=== PATIENT | female | born 1950 | race Caucasian/White ===

== ENCOUNTER → 2023-07-05 09:07 | Day surgery (SDC) | payer OTHER, SELFPAY ==
--- NOTE | 2023-06-29 12:17 | HPS.HSE ---
Family Physician
-
Family Physician: NOT KNOW UNKNOWN - PT DOES
Chief Complaint
-
Persistent atrial fibrillation.
History of Present Illness
The patient is a 72-year-old female presenting today for persistent atrial fibrillation. The patient reports significant palpitations, intermittent dyspnea on exertion, and mild fatigue secondary to this diagnosis. She previously underwent
a cardioversion in 03/2023 for her arrhythmia. She is on current pharmacological therapy with Toprol-XL. She takes Eliquis for a CHADS-VASc score of 3. She notes that her current symptoms associated with her arrhythmia are greatly interfering with
her activities of daily living and are overall impacting her quality of life. It is recommended that she proceed with pulmonary vein isolation for further arrhythmia management at this time. Prior to undergoing pulmonary vein isolation, she will
proceed with a transesophageal echocardiogram to officially rule out a left atrial appendage thrombus. She denies any current complaints today such as chest pain, shortness of breath at rest, nausea, vomiting, diarrhea, lightheadedness, dizziness,
cough, sore throat, or fever.
Medical History
Past Medical History
Past Medical History: Reports Other
Additional Past Medical History:
1. Persistent atrial fibrillation, status post cardioversion 03/2023;�
� � pharmacological therapy with Toprol-XL, oral anticoagulation
� � with Eliquis.
2. Hypertension.
3. Mitral regurgitation.
4. Tricuspid regurgitation.
5. Abnormal chest CT; follow-up advised.
6. GERD.
7. Hemorrhoids.
8. Balance difficulties.
9. Squamous cell carcinoma, status post multiple excisions.
10. Insomnia.
11. Mild hyponatremia.
Past Surgical History: Reports Other
Additional Past Surgical History:
1. Cardioversion.
2. [place] teeth extraction.
3. Multiple squamous cell carcinoma excisions.
4. Colonoscopy x2.
Social History
Tobacco: Non-smoker
Alcohol: Other (She reports occasional wine drinking. )
Personal: Partner
Living: Other (The patient lives in a one-story home with her partner.)
Family History
Family History: Not pertinent
Allergies / Home Medications
Allergy/Medication List:
MEDICATIONS:�
1. Acetaminophen 1000 mg p.o. every 6 hours as needed.
2. Eliquis 5 mg p.o. twice a day.
3. Lisinopril 20 mg p.o. daily.
4. Melatonin 5 mg p.o. at bedtime as needed.
5. Metoprolol Succinate 25 mg p.o. daily.
6. Pantoprazole 20 mg p.o. daily.
7. Simethicone 125 mg p.o. daily as needed.
�
ALLERGIES:� Penicillin. Sulfa.
Review of Systems
-
A 12 point ROS was completed and negative except as noted: Yes
Physical Exam
Vital Signs
Blood pressure 156/96, heart rate ranging from 84 to 116 beats per minute, respirations 18, pulse ox 98 percent on room air.
Height 5 feet 7 inches, weight 53.4 kg, BMI 18.4.
Physical Exam
General: Well Developed, Well Nourished and No Apparent Distress
HEENT: NormoCephalic, Moist mucous membranes, Atraumatic and PERRLA
Respiratory: Clear
Cardiac: Irregular Rhythm and Murmur (2/6 systolic )
GI: Soft, Non Tender and Non Distended
Musculoskeletal: Normal Gait & Station
Skin: Warm and Dry
Neuro: AO x 3 and Nonfocal/grossly intact
Laboratory Results
-
DIAGNOSTIC STUDIES as of 06/27/2023: White blood cell count 6.1, hemoglobin 15.2, platelet count 229,000. PT 18.7, INR 1.58. Sodium 134, potassium 4.4, BUN 9, creatinine 0.5, glucose 85, calcium 9.3, magnesium 2.1, AST 32, ALT 25, albumin 4.3, Type
and screen O- positive.
�
EKG 06/27/2023: Atrial flutter with variable AV block. Rightward axis.
�
Chest CT 06/27/2023: Normal, conventional pulmonary venous anatomy on the left. On the right there is an accessory right middle lobe pulmonary vein with immediate branching into lateral and medial segments. No definite left atrial filling
defect/thrombus identified; however, this is not fully opacify. There is asymmetric right apical pleural thickening and adjacent stranding, nonspecific groundglass opacity. This could be related to previous infection or inflammation. Follow-up exam
with repeat chest CT in 3-6 months to document stability and exclude an occult neoplasm.
Impression/Plan
-
IMPRESSION/PLAN:
1. Persistent atrial fibrillation: The patient is in need of pulmonary vein isolation with Dr. Chaparro Kimball on 07/06/2023. Prior to undergoing this, however, she will proceed with a transesophageal echocardiogram on 07/05/[address] Mahesh Vang.
The benefits and risks of the procedure have been explained to the patient. The patient understands these risks and wishes to proceed.
2. Abnormal chest CT: The patient was notified of her chest CT result through phone call by Dr. Chaparro Kimball. A copy of her chest CT will be sent to her primary care physician for further follow-up and management.
[2023-07-05 09:33] VITALS: BMI 17.9
== END ==
LOC: CATH 09:07
PROVIDERS: ATTENDING PHYSICIAN Nuclear Medicine Nuclear Cardiology; FAMILY PHYSICIAN Family Medicine
DX: I48.19 Other persistent atrial fibrillation (principal); I08.3 Combined rheumatic disorders of mitral, aortic and tricuspid valves; I10 Essential (primary) hypertension; K21.9 Gastro-esophageal reflux disease without esophagitis; Z79.01 Long term (current) use of anticoagulants
CPT/HCPCS: 93312; 93320; 93325

== ENCOUNTER 2023-07-06 06:01 | Day surgery (SDC) | payer OTHER, SELFPAY ==
[2023-06-27 10:46] VITALS: BMI 18.5
[2023-06-27 11:23] LABS: ALT (SGPT) 25 U/L (0-35); AST (SGOT) 32 U/L (14-36); Albumin 4.3 g/dl (3.5-5.0); Alkaline Phosphatase 105 U/L (38-126); Blood Urea Nitrogen 9 mg/dl (7-17); Calcium 9.3 mg/dl (8.4-10.2); Carbon Dioxide 28 mmol/L (22-30); Chloride 101 mmol/L (98-107); Estimated Creatinine Clearance 71 ml/min; Glucose 85 mg/dl (70-99); INR 1.58; Magnesium 2.1 mg/dl (1.6-2.3); PT 18.7 Sec (11.4-14.6); Potassium 4.4 mmol/L (3.5-5.1); Sodium 134 mmol/L (135-145); Total Protein 7.2 g/dl (6.3-8.2); eGFR > 60.00
[2023-06-27 11:35] LABS: % Basophils 0.8 % (0-2); % Eosinophils 2.3 % (0-6); % Immature Granulocytes 0.3 % (0-0.5); % Lymphocytes 18.2 % (20.5-51.1); % Monocytes 10.8 % (1.7-9.3); % Neutrophils 67.6 % (42.2-75.2); Absolute Basophils 0.1 10^3/uL (0-0.2); Absolute Eosinophils 0.1 10^3/uL (0-0.7); Absolute Lymphocytes 1.1 10^3/uL (1.2-3.4); Absolute Monocytes 0.7 10^3/uL (0.1-0.6); Absolute Neutrophils 4.1 10^3/uL (1.4-6.5); Hematocrit 45.8 % (37.0-47.0); Hemoglobin 15.2 g/dL (12.0-16.0); Mean Corp Hgb Conc. 33.2 g/dL (33.0-37.0); Mean Corpuscular Hgb 29.2 pg (27.0-31.0); Mean Corpuscular Volume 88.1 fL (81.0-99.0); Nucleated Red Blood Cells % 0 %; Platelet Count 229 10^3/uL (130-400); Red Cell Dist. Width 14.3 % (11.5-14.5); White Blood Cell Count 6.1 10^3/uL (4.8-10.8)
[2023-07-06] VITALS (24 sets, daily range): BP systolic 120–174; BP diastolic 69–124; BMI 18.6
--- NOTE | 2023-07-06 06:46 | PTCARENOTE ---
Pt arrived today for a PVI procedure. Pt's blood pressure was taken on both arms with a small adult cuff and adult cuffs. BP's range from 164-167/101-124. Pt denies headache, dizziness, chest pain, and or SOB at this time. Will inform
anesthesiologist as well as Dr Beltran.
--- NOTE | 2023-07-06 06:50 | PTCARENOTE ---
Dr Beltran made aware of pt's hypertension this morning. Dr Beltran at pt bedside speaking to pt and assessing pt. No further treatment ordered at this time. Will continue to monitor.
--- NOTE | 2023-07-06 07:00 | PTCARENOTE ---
Dr Gresham, anesthesiologist, and Alessandra YUEN, also made aware of pt's blood pressure. No treatment ordered at this time. Will continue to monitor.
[2023-07-06] MEDS: TYLENOL 1000 MG PO (07:10)
[2023-07-06 08:57] LABS: ACT-LR - POC 261 Seconds (116-155)
[2023-07-06 09:16] LABS: ACT-LR - POC 343 Seconds (116-155)
[2023-07-06 09:40] LABS: ACT-LR - POC 329 Seconds (116-155)
[2023-07-06 10:06] LABS: ACT-LR - POC 347 Seconds (116-155)
[2023-07-06 10:46] LABS: ACT-LR - POC 160 Seconds (116-155)
--- NOTE | 2023-07-06 11:02 | ITS.CL.ABL ---
Cnc Router Operator - Ablation
Ablation
Procedure Report:
Primary Film Archivist: Anton Roca MD
Procedure Date: 07/06/2023
Patient History:
Patient is a pleasant 72-year-old female with a past medical history significant for hypertension, GERD, persistent atrial fibrillation (symptomatic).
Indication:
Symptomatic persistent atrial fibrillation
Early recurrence following cardioversion
Arrhythmia Specific History:
Prior Medical Therapies for Rate and Rhythm Control:
X Beta-abi
[ ] Calcium channel-abi
[ ] Amiodarone
[ ] Dronederone
[ ] Sotalol
[ ] Flecainide
[ ] Dofetilide
[ ] Options limited by bradycardia
[ ] Options limited by comorbid renal disease
Prior Procedural Therapies for AF/AFL:
X Cardioversion
[ ] Pulmonary Vein Isolation
[ ] Posterior Wall Isolation
[ ] Additional lines (Specify)
[ ] Surgical Chandler-MAZE or PVI (Specify)
Procedure Performed:
X AF ablation procedure (32201) -- includes LA/CS pacing, trans-septal, 3D mapping, + ICE
[ ] +IV drug (31005)
[ ] +Other Arrhythmia (82927)
[ ] +Other AF Line/ablation (50634)
Risks and expected recovery has been explained in detail. Alternative options have been explored, and in a shared-decision making fashion we have decided that this was the most appropriate procedure.
Method
NPO status confirmed. Grounding pad applied. Defibrillator pads applied. Continuous surface ECG, pulse oximetry, and blood pressure were monitored. Procedure was performed under general anesthesia, with anesthesia services.
Both groins were clipped, prepped with Chloraprep, and draped in sterile fashion. Time out was called. Local anesthesia administered with bupivacaine. The right and left femoral veins were accessed for catheter placement, using ultrasound guidance,
micro-puncture needle/wire, and modified seldinger technique. 3 sheaths were placed. The following catheters were used:
[ ] Tacticath SE (D/F Curve) ablation catheter
X Viewflex 9Fr ICE catheter
X Inquiry decapolar 6Fr diagnostic catheter
[ ] CRD Hex 6Fr
X Arctic Front Advance Cryoballoon (28mm)
X Achieve Advance mapping catheter (15mm)
[ ] Acuson AcuNav 8 Fr ICE catheter
[ ]Other: [ ]
Intracardiac ultrasound (ICE) was carefully advanced into the right atrium to guide sheath placement over a J-wire, catheter placement, guide trans-septal puncture, identify potential complications, identify anatomic structures and ensure proper
contact between ablation catheter and tissue.
Heparin was given prior to trans-septal puncture. Heparin was given to achieve and maintain a target ACT of 300-400 seconds.
Trans-septal access was performed under ICE guidance. Trace effusion/fat pad noted prior to transseptal and remained unchanged throughout the procedure. The trans-septal puncture was performed with a SafeSept wire through a Brockenbrough needle
assembly. The wire was visualized as it entered the LSPV. The Brockenbrough needle assembly, SafeSept wire and sheath dilator were removed under negative pressure. The Protrack pigtail wire was advanced through the sheath into the left atrium with
position confirmed on ICE and fluoroscopy. The fixed curve long sheath was exchanged from the steerable sheath over the Protrack wire and was advanced into the LA and positioned at the mitral annulus.
ICE and 3D mapping was performed to identify relevant cardiac structures. A careful 3D map was created to assess for regions of low-voltage and abnormal electrogram signals. Additional mapping was performed as outlined below. See synopsis for
details.
Cryoballoon ablation was performed using freeze/thaw/freeze at 2-4 minute intervals. Ablation targets included Cryoballoon temperatures of -30 degrees @ 30 seconds with goal temp typically between -40 and -50 degrees Celsius with time to effect when
measurable recorded to guide duration of application and need for repeat ablation in each vein. Esophageal temperature monitored throughout intervention. Phrenic nerve pacing performed during cryoapplication in the right pulmonary veins to monitor
for any evidence of PNI requiring application termination. See synopsis and procedure log for details.
Catheter and sheath were removed from the left atrium and post-ablation intracardiac echo evaluation was consistent with pre-ablation with no changes and no change to trace pericardial effusion/fat pad and there is no left atrial thrombus or left
ventricle thrombus seen. Electrophysiology study was performed. Hemostasis was obtained with figure of 8 stitch for each groin with manual pressure. Protamine was used for reversal.
Estimated Blood Loss
5-10 mL
Complications
None
Procedure Synopsis:
The patient entered the room in AF. Three-dimensional mapping with EnSite system was performed with reconstruction of left atrium utilizing Achieve catheter. Intracardiac ultrasound and EnSite was used for guidance of ablation and placement of the
Cryoballoon. PV seal was confirmed with pressure waveform and ICE. Using the Achieve catheter, it was confirmed that pulmonary veins were active. All pulmonary veins were isolated successfully using Cryoballoon ablation using freeze/thaw/freeze
cycles at 2-4-minute intervals, with good [id number] of isolation. During the right-sided PV ablation, phrenic nerve pacing was performed to assess the phrenic nerve strength and the phrenic nerve was intact throughout the right-sided ablation.
SR restored with 200J synchronized DCCV. Pre- and post-pulmonary vein recording and pacing from the Achieve catheter was utilized to ensure complete pulmonary vein isolation. LA voltage map created at procedure conclusion confirming WACA of
bilateral PVs.
Fluoroscopy: 10.2 minutes; 9.92 mGy; DAP 1.17
Contrast used:0 cc
Baseline Intervals:
Rhythm: AF
QRS: 85 ms
QT: 361 ms
Post-Procedure Intervals:
DC: 175 ms
QRS: 85 ms
QT: 457 ms
QTc: 426 ms
AVWB: 360 ms
AERP: 600/220 ms
Recommendations
- Bedrest with straight-leg precautions as ordered
- Anticipate same day discharge if patient meeting clinical metrics
- Resume home medications as indicated
- Ok to resume anticoagulation tonight if patient and groin sites stable
- PPI daily for 30 days
- Plan for follow-up in office in 4-6 weeks
Chaparro Kimball DO
Clinical Cardiac Home Health Attendant
cc: Anton Roca MD; Reymundo Jack MD
--- NOTE | 2023-07-06 15:24 | PTCARENOTE ---
Pt's BP 150's/90's. Pt did not take her morning lisinopril or metoprolol today. Alessandra Drummond NP made aware and stated to have pt take her BP meds when she gets home.
--- NOTE | 2023-07-06 15:28 | PTCARENOTE ---
Pt waiting to see Dr Beltran prior to discharge.
[2023-07-06] MEDS: ANESTHETIC LOZENGE 1 LOZENGE PO (15:30)
--- NOTE | 2023-07-06 15:45 | PTCARENOTE ---
Dr Beltran at pt bedside speaking to pt and pt's significant other.
--- NOTE | 2023-07-06 15:48 | W.PN.UPDATE ---
Update Note
Progress Note Update
Pt seen post PVI. Bilat groin sites without ht/bleeding, non tender. OOB to bathroom, chair. Post EKG NSR w/PACs, 60s. Resume eliquis today. Will increase protonix to 40mg daily for 30 days post procedure, then resume 20mg daily as before. Followup
with Dr. Roca arranged. Home today if groin sites/tele remain stable.
== END 2023-07-06 15:50 | disposition home or self-care (01) ==
LOC: CATH 06:01
PROVIDERS: ATTENDING PHYSICIAN Internal Medicine Cardiovascular Disease; FAMILY PHYSICIAN Family Medicine; OTHER PHYSICIAN Internal Medicine Interventional Cardiology
DX: I48.19 Other persistent atrial fibrillation (principal); R00.2 Palpitations; R53.83 Other fatigue; R06.09 Other forms of dyspnea; I10 Essential (primary) hypertension; I08.1 Rheumatic disorders of both mitral and tricuspid valves; R91.8 Other nonspecific abnormal finding of lung field; K21.9 Gastro-esophageal reflux disease without esophagitis; Z87.19 Personal history of other diseases of the digestive system; Z85.828 Personal history of other malignant neoplasm of skin; G47.00 Insomnia, unspecified; E87.1 Hypo-osmolality and hyponatremia; Z79.01 Long term (current) use of anticoagulants; Z88.0 Allergy status to penicillin
CPT/HCPCS: C1766; C1894; C1769; C1730; C1893; C1733; C1759; 36415; 75572; 76937; 80053; 83735; 85025; 85347; 85610; 86850; 86900; 86901; 93005; 93656; Q9967